=== PATIENT | female | born 1965 | race Caucasian/White ===

== ENCOUNTER 2020-08-11 19:30 | Emergency (ER) | payer BC ==
[2020-08-11] MEDS ORDERED: Cephalexin 250 MG Cap PO ONE (20:22)
--- NOTE | 2020-08-11 21:02 | EDM.PDOC ---
ED HPI GENERAL MEDICAL PROBLEM - General Chief Complaint: General Stated Complaint: TICK BITE Time Seen by Provider: 08/11/20 19:45 Source of Information: Reports: Patient - History of Present Illness INITIAL COMMENTS - FREE TEXT/NARRATIVE: 55-year-old female presents emergency room with complaints of and concerns for possible tick bite on her forehead. She reports she removed a tick approximately 2 days ago from her forehead she has noticed a lump over the area she has been squeezing it and stated" plasma has been coming out of it." She also feels like the area moves down towards her eye and face. There is no redness whatsoever there is an area where it looks like it has been scratched or irritated no surrounding erythema there is no bolus sign around the area. No active drainage. No swelling around the face eyes or nose. Onset Date: 08/09/20 Duration: Day(s): Location: Reports: Head Severity: Mild Improves with: Reports: None Worsens with: Reports: None Associated Symptoms: Reports: No Other Symptoms - Related Data Allergies Allergy/AdvReac Type Severity Reaction Status Date / Time No Known Allergies Allergy Verified 08/11/20 20:11 Home Meds: Home Meds cephALEXin [Keflex] 500 mg PO Q8H #8 cap 08/11/20 [Rx] ED ROS GENERAL - Review of Systems Review Of Systems: See Below Constitutional: Reports: No Symptoms HEENT: Reports: No Symptoms Respiratory: Reports: No Symptoms Cardiovascular: Reports: No Symptoms Endocrine: Reports: No Symptoms GI/Abdominal: Reports: No Symptoms : Reports: No Symptoms Musculoskeletal: Reports: No Symptoms Skin: Reports: Pruritis. Denies: Erythema, Urticaria Neurological: Reports: No Symptoms Psychiatric: Reports: No Symptoms Hematologic/Lymphatic: Reports: No Symptoms Immunologic: Reports: No Symptoms ED EXAM, GENERAL - Physical Exam Exam: See Below Exam Limited By: No Limitations General Appearance: Alert, WD/WN, No Apparent Distress Ears: Hearing Grossly Normal Nose: Normal Inspection Throat/Mouth: Normal Voice Head: Atraumatic Neck: Normal Inspection Respiratory/Chest: No Respiratory Distress Extremities: Normal Inspection Neurological: Alert, Oriented, No Motor/Sensory Deficits Psychiatric: Normal Affect, Normal Mood Skin Exam: Other (There is a area of an abrasion from what appears to be scratching from a previous bite. Patient did state that she removed a tick 2 days prior.). No: Ecchymosis, Erythema, Increased Warmth, Wound/Incision, Zoster-Like Rash Lymphatic: No Adenopathy Course - Vital Signs Last Recorded V/S: Last Vital Signs Temp 97.8 F 08/11/20 19:40 Pulse 67 08/11/20 19:40 Resp 18 08/11/20 19:40 BP 151/92 H 08/11/20 19:40 Pulse Ox 97 08/11/20 19:40 - Orders/Labs/Meds Orders: Active Orders 24 hr Category Date Time Status LYME DISEASE AB TOTAL IG EIA [REF] Routine Lab 08/11/20 20:21 Received Meds: Medications Discontinued Medications Generic Name Dose Route Start Last Admin Trade Name Freq PRN Reason Stop Dose Admin Cephalexin 500 mg 08/11/20 20:22 08/11/20 20:26 Cephalexin 250 Mg Cap PO 08/11/20 20:23 500 mg ONETIME ONE Administration Departure - Departure Time of Disposition: 20:15 Disposition: Home, Self-Care 01 Condition: Good Clinical Impression: Scalp abrasion, non-infected - Discharge Information Prescriptions: cephALEXin [Keflex] 500 mg PO Q8H #8 cap Instructions: Tick Bite Information, Adult, [id number], Cellulitis, Adult, Lyme Disease Referrals: Rea Thakkar MD [Primary Care Provider] - Forms: ED Department Discharge Care Plan Goals: 1. 500 mg 3 times daily for 3 days 2. Follow-up with Rea Madden next week if the cellulitis, skin infection does not look improved. 3. We debby a Lyme titer on you today you should have these results by next week. Sepsis Event Note (ED) - Evaluation Sepsis Screening Result: No Definite Risk - Focused Exam Vital Signs: Vital Signs Temp Pulse Resp BP Pulse Ox 08/11/20 19:40 97.8 F 67 18 151/92 H 97 - My Orders Last 24 Hours: My Active Orders 08/11/20 20:21 LYME DISEASE AB TOTAL IG EIA [REF] Routine - Assessment/Plan Last 24 Hours: My Active Orders 08/11/20 20:21 LYME DISEASE AB TOTAL IG EIA [REF] Routine Assessment:: Scalp abrasion noninfectious secondary to a bug bite. Patient reports history of a tick removed. Plan: Lyme disease titer drawn. Keflex 500 mg 3 times daily for 3 days for possible mild skin cellulitis. Follow-up for your Lyme disease results as well as skin check if the area of skin cellulitis is not improving with Dr. Rea Madden.
== END 2020-08-11 20:33 | disposition home or self-care (01) ==
LOC: KA.ED 19:30
DX: S00.01XA Abrasion of scalp, initial encounter (principal); W50.4XXA Accidental scratch by another person, initial encounter
CPT/HCPCS: 99282; A9270; 99283